=== PATIENT | male | born 1950 | race Caucasian/White ===

== ENCOUNTER 2019-03-21 19:41 | Inpatient (IN) | payer MEDICARE, OTHER, MEDICAID ==
[2019-03-21] MEDS: SOD CHLORIDE 0.9% 1,000 ML IV ×2 (20:06→21:59)
[2019-03-21] MEDS ORDERED: BISACODYL (EC) 5 MG TAB PO (22:00)
[2019-03-21] MEDS ORDERED: ACETAMINOPHEN 325 MG TAB PO ×2 (22:00)
[2019-03-21] MEDS ORDERED: NACL 0.9% 3 ML SYG IV (22:00)
[2019-03-21] MEDS ORDERED: ONDANSETRON 4 MG INJ IV ×2 (22:00)
[2019-03-21] MEDS ORDERED: LORAZEPAM 2 MG INJ IV (22:00)
[2019-03-21] MEDS ORDERED: DOCUSATE SODIUM 100 MG CAP PO (22:00)
[2019-03-22] MEDS ORDERED: LORAZEPAM 2 MG INJ IV (01:23)
[2019-03-22] MEDS: LEVOTHYROXINE 50 MCG TAB PO (06:27)
[2019-03-22] MEDS ORDERED: MONTELUKAST 10 MG TAB PO (21:00)
== END 2019-03-22 15:05 | disposition home or self-care (01) | DRG 917 ==
LOC: E/R 19:41 → 6WM 21:33
DX: T42.4X1A Poisoning by benzodiazepines, accidental (unintentional), initial encounter (principal); G92 Toxic encephalopathy; Y92.019 Unspecified place in single-family (private) house as the place of occurrence of the external cause; F32.9 Major depressive disorder, single episode, unspecified; F41.9 Anxiety disorder, unspecified; E05.90 Thyrotoxicosis, unspecified without thyrotoxic crisis or storm; F39 Unspecified mood [affective] disorder
CPT/HCPCS: 36415; 70450; 71045; 80053; 80307; 81003; 82962; 83036; 83735; 84443; 84484; 85025; 85610; 85730; 93005; 97161; 99285-25